=== PATIENT | male | born 1985 | race Caucasian/White ===

== ENCOUNTER 2017-09-14 01:09 | Emergency (ER) | payer OTHER, BC ==
--- NOTE | 2017-09-14 02:20 | RADIOLOGY REPORT (SQ) ---
EXAM DESCRIPTION: XR ELBOW 3 VIEWS COMPLETED DATE/TME: 09/14/2017 01:44 CLINICAL HISTORY: 32 years Male, injury COMPARISON: None. Findings: Moderate swelling-bursitis at the posterior right elbow.. Bones, joints, and soft tissues of the XR R ELBOW 3 VIEWS appear otherwise intact. IMPRESSION: Moderate swelling/bursitis at the posterior right elbow.
[2017-09-14] MEDS ORDERED: KETOROLAC TROMETHAMINE INJ/PF 30 MG/1 ML SDV IM ONE (02:25)
[2017-09-14] MEDS ORDERED: HYDROMORPHONE HCL INJ/PF 2 MG/ML AMPULE IM ONE (02:25)
--- NOTE | 2017-09-14 02:28 | ER Document Report ---
ED General - General Chief Complaint: Elbow Injury Stated Complaint: ELBOW PAIN,SWELLING Time Seen by Provider: 09/14/17 01:53 Notes: Patient is a 32-year-old male who presents with complaints of pain of the right elbow. He said the pain started around 10 PM. Is swelling and tenderness over the bursa of the right elbow. Denies any recent trauma injuries to it. He works as a rn patient services. He has never had this happen before. No recent fevers or infections. TRAVEL OUTSIDE OF THE [place] IN LAST 30 DAYS: No - Related Data Allergies/Adverse Reactions: No Known Allergies Allergy (Unverified 04/12/13 22:00) Past Medical History - Social History Smoking Status: Current Every Day Smoker Frequency of alcohol use: None Drug Abuse: None Family History: Reviewed & Not Pertinent Patient has suicidal ideation: No Patient has homicidal ideation: No Renal/ Medical History: Denies: Hx Peritoneal Dialysis - Immunizations Hx Diphtheria, Pertussis, Tetanus Vaccination: Yes Review of Systems - Review of Systems Notes: My Normal Review Basic REVIEW OF SYSTEMS: CONSTITUTIONAL : Denies fever, chills, or sweats. Denies recent illness. MUSCULOSKELETAL: Right elbow pain. SKIN: Denies rash or skin lesions. NEUROLOGICAL: Denies sensory or motor loss. ALL OTHER SYSTEMS REVIEWED AND NEGATIVE. Physical Exam - Vital signs Vitals: Temp Pulse Resp BP Pulse Ox 98.1 F 96 16 150/94 H 98 09/14/17 01:21 09/14/17 01:21 09/14/17 01:21 09/14/17 01:21 09/14/17 01:21 - Notes Notes: General Appearance: Well nourished, alert, cooperative, no acute distress, moderate to severe obvious discomfort. Vitals: reviewed, See vital signs table. Extremities: good pulses in distal right upper extremity, swelling and tenderness over the the right posterior elbow over the bursa. Mild erythema. No edema. Skin: warm, dry, appropriate color, no rash Neuro: speech clear, oriented x 3, normal affect, responds appropriately to questions. Course - Re-evaluation Re-evalutation: 09/14/17 03:04 Patient has swelling over the olecranon bursa. X-rays are also consistent with bursitis. She does have some redness over the area. I will place an antibiotic in case there is infectious component to it. I will place him on anti-inflammatory medications. He has an orthopedic doctor. I will have him follow-up with orthopedic doctor on Monday for reevaluation. I encourage him return to ER for spreading redness or swelling around his elbow, worsening pain , fevers, or feels unwell. Patient and agree with plan and patient will be discharged home. Dictation of this chart was performed using voice recognition software; therefore, there may be some unintended grammatical errors. 09/14/17 03:05 - Vital Signs Vital signs: Temp Pulse Resp BP Pulse Ox 98.1 F 96 16 150/94 H 98 09/14/17 01:21 09/14/17 01:21 09/14/17 01:21 09/14/17 01:21 09/14/17 01:21 Discharge - Discharge Clinical Impression: Bursitis of elbow Qualifiers: Elbow bursitis location: olecranon bursitis Laterality: right Qualified Code(s) : M70.21 - Olecranon bursitis, right elbow Condition: Good Disposition: HOME, SELF-CARE Instructions: Oral Narcotic Medication ([facility]) Additional Instructions: Bursitis You have been diagnosed as having bursitis. Bursitis is an inflammation of a fluid pouch (bursa) found near joints. This is usually due to repeated minor irritation, or pressure directly on the bursa. On occasion, the bursitis can be due to infection (your doctor has checked for this). The usual treatment is rest and antiinflammatory medication. Occasionally, an injection of cortisone is necessary. You should call the doctor for re-examination if the pain increases significantly, or if the area becomes severely swollen and red, or fever develops. Please follow up closely with your orthopedist for reevaluation. Please limit direct pressure to your elbow. Please take the medications as prescribed. Take the Naprosyn with food. Do not take other NSAID medicaitons such as Aspirin, Motrin, Ibuprofen, Aleve, or Advil when taking the Naprosyn. It is okay to take Tylenol. Please return to the ER if you have spreading redness or swelling around the elbow. Doxycycline will make your skin more sensitive to the sun so please make sure you keep your skin covered or wear sunscreen whenever out in the sun. Prescriptions: Doxycycline Hyclate 100 mg PO BID #14 capsule Naproxen [Naprosyn 250 mg Tablet] 250 mg PO BID #20 tablet Forms: Return to Work
[2017-09-14] MEDS ORDERED: DOXYCYCLINE HYCLATE 100 MG TABLET PO ONE ×2 (02:59→03:08)
[2017-09-14] MEDS ORDERED: HYDROCODONE/ACETAMINOPHEN 5-325 MG (6 TAB/ER DISP) PO PRN (03:05)
[2017-09-14] MEDS ORDERED: HYDROCODONE/ACETAMINOPHEN 5-325 MG (6 TAB/ER DISP) ONE (03:08)
[2017-09-14 03:16] VITALS: BP 138/84
== END 2017-09-14 03:17 | disposition home or self-care (01) ==
LOC: ER 01:09
DX: M70.21 Olecranon bursitis, right elbow (principal); L53.9 Erythematous condition, unspecified; F17.200 Nicotine dependence, unspecified, uncomplicated
CPT/HCPCS: 99283; 96372; 73080; J1885; J1170

== ENCOUNTER 2017-09-15 09:58 | Inpatient (IN) | payer BC, OTHER ==
[2017-09-15] MEDS ORDERED: RINGERS SOLUTION,LACTATED 1,000 ML IV PRN (10:12)
[2017-09-15] MEDS ORDERED: ONDANSETRON HCL INJ/PF 4 MG/2 ML SDV IV PRN ×2 (10:12→12:36)
[2017-09-15 11:11] LABS: ABSOLUTE EOSINOPHILS # (AUTO) 0.1 10^3/uL (0.0-0.6); ABSOLUTE MONOCYTES (AUTO) 1.2 10^3/uL (0.1-1.4); ABSOLUTE NEUT (AUTO) 13.4 10^3/uL (1.7-8.2); BASOPHILS % (AUTO) 0.2 % (0-2); EOSINOPHILS % (AUTO) 0.4 % (0-6); HEMATOCRIT 39.6 % (37.9-51.0); HEMOGLOBIN 13.5 g/dL (13.5-17.0); LYMPHOCYTES % (AUTO) 12.1 % (13-45); MEAN CORPUSCULAR HEMOGLOBIN 30.6 pg (27.0-33.4); MEAN CORPUSCULAR HGB CONC 34.1 g/dL (32.0-36.0); MEAN CORPUSCULAR VOLUME 90 fl (80-97); MONOCYTES % (AUTO) 7.3 % (3-13); PLATELET COUNT 218 10^3/uL (150-450); RED BLOOD COUNT 4.41 10^6/uL (4.35-5.55); RED CELL DISTRIBUTION WIDTH 13.7 % (11.5-14.0); TOTAL CELLS COUNTED % (AUTO) 100 %; WHITE BLOOD COUNT 16.8 10^3/uL (4.0-10.5)
[2017-09-15 11:32] LABS: ANION GAP 9 (5-19); BLOOD UREA NITROGEN 10 mg/dL (7-20); CALCIUM 9.3 mg/dL (8.4-10.2); CARBON DIOXIDE 27 mmol/L (22-30); CHLORIDE 105 mmol/L (98-107); GLUCOSE 99 mg/dL (75-110); POTASSIUM 4.1 mmol/L (3.6-5.0); SODIUM 141.2 mmol/L (137-145)
[2017-09-15 11:44] LABS: C-REACTIVE PROTEIN 141.6 mg/L (<10.0)
[2017-09-15 11:58] LABS: ERYTHROCYTE SEDIMENTATION RATE 34 mm/hr (0-15)
[2017-09-15] MEDS: HYDROMORPHONE HCL INJ/PF 2 MG/ML AMPULE IV PRN ×2 (13:02→21:22)
--- NOTE | 2017-09-15 13:16 | RADIOLOGY REPORT (SQ) ---
EXAM DESCRIPTION: MRI RT UPPER JOINT COMBO COMPLETED DATE/TIME: 09/15/2017 12:23 pm REASON FOR STUDY: Olecranon Bursitis right arm pain and swelling began yesterday COMPARISON: None. TECHNIQUE: Multiplanar imaging of the right elbow to include T1-weighted, postcontrast T1-weighted, and T2-weighted images. CONTRAST TYPE AND DOSE: 20 mL Prohance. RENAL FUNCTION: None required. The patient is less than 50 years old. LIMITATIONS: None. FINDINGS: BONE MARROW: No marrow signal alteration. Specifically no olecranon marrow replacement or marrow edema. No evidence for osteomyelitis. No cortical break through. SOFT TISSUES: Thick walled inflamed olecranon bursa containing fluid. This measures about 5 x 4.5 x 2 cm in size. Extensive surrounding cellulitis with skin thickening and subcutaneous edema and diffu se skin and subcutaneous soft tissue enhancement. OTHER: No right elbow joint effusion. IMPRESSION: Olecranon bursitis with surrounding cellulitis. No MR evidence of osteomyelitis. No right elbow joint effusion TECHNICAL DOCUMENTATION: JOB ID: [id number]- All Rights Reserved Reading location - IP/workstation name: [email or web address]
--- NOTE | 2017-09-15 15:11 | PDOC H&P ---
History of Present Illness Admission Date/PCP: 09/15/17 09:58 MADELINE DOLL PA-C Patient complains of: Right elbow pain History of Present Illness: GAEL KENYON III is a 32 year old male who presents to emergency room approximately 48 hours ago with swelling and pain in his elbow. He was started on antibiotics and given anti-inflammatories along with pain medication but patient continued to have worsening of his symptoms. He then developed fever and chills upon follow-up at my office he states the past evening his pain was worse. He states pain is 8/10. Worse with motion does improve with pain medication. Denies numbness or tingling. Denies specific injury. Past Medical History Psychiatric Medical History: Denies: Depression Social History Smoking Status: Unknown if Ever Smoked Frequency of Alcohol Use: Social Hx Recreational Drug Use: No Drugs: None Hx Prescription Drug Abuse: No Family History Family History: Reviewed & Not Pertinent Parental Family History Reviewed: No Children Family History Reviewed: No Sibling(s) Family History Reviewed.: No Medication/Allergy Home Medications: Azithromycin [Zithromax 250 mg Tablet] 250 mg PO DAILY #4 tablet 04/12/13 Ciprofloxacin HCl [Cipro 500 mg Tablet] 500 mg PO BID #20 tablet 06/03/14 Doxycycline Hyclate 100 mg PO BID #20 capsule 06/03/14 Hydrocodone/Acetaminophen [Baylis 5-325 mg Tablet] 1 tab PO Q4 PRN #14 tablet Doxycycline Hyclate 100 mg PO BID #14 capsule 09/14/17 Naproxen [Naprosyn 250 mg Tablet] 250 mg PO BID #20 tablet 09/14/17 Allergies/Adverse Reactions: No Known Allergies Allergy (Unverified 04/12/13 22:00) Review of Systems Constitutional: ABSENT: chills, fever(s), headache(s), weight gain, weight loss Eyes: ABSENT: visual disturbances Ears: ABSENT: hearing changes Cardiovascular: ABSENT: chest pain, dyspnea on exertion, edema, orthropnea, palpitations Respiratory: ABSENT: cough, hemoptysis Gastrointestinal: ABSENT: abdominal pain, constipation, diarrhea, hematemesis, hematochezia, nausea, vomiting Genitourinary: ABSENT: dysuria, hematuria Integumentary: ABSENT: rash, wounds Neurological: ABSENT: abnormal gait, abnormal speech, confusion, dizziness, focal weakness, syncope Psychiatric: ABSENT: anxiety, depression, homidical ideation, suicidal ideation Endocrine: ABSENT: cold intolerance, heat intolerance, menstrual abnormalities, polydipsia, polyuria Hematologic/Lymphatic: ABSENT: easy bleeding, easy bruising, lymphadenopathy Physical Exam Vital Signs: Temp Pulse Resp BP Pulse Ox 98.5 F 90 20 137/79 H 97 09/15/17 10:25 09/15/17 10:25 09/15/17 10:25 09/15/17 10:25 09/15/17 10:25 General appearance: PRESENT: no acute distress, well-developed, well-nourished Head exam: PRESENT: atraumatic, normocephalic Eye exam: PRESENT: conjunctiva pink, EOMI, PERRLA. ABSENT: scleral icterus Ear exam: PRESENT: normal external ear exam Mouth exam: PRESENT: moist, tongue midline Neck exam: PRESENT: full ROM. ABSENT: carotid bruit, JVD, lymphadenopathy, thyromegaly Respiratory exam: PRESENT: unlabored Cardiovascular exam: PRESENT: RRR. ABSENT: diastolic murmur, rubs, systolic murmur Pulses: PRESENT: normal dorsalis pedis pul, +2 pedal pulses bilateral Vascular exam: PRESENT: normal capillary refill GI/Abdominal exam: PRESENT: normal bowel sounds, soft. ABSENT: distended, guarding, mass, organolmegaly, rebound, tenderness Rectal exam: PRESENT: deferred Musculoskeletal exam: PRESENT: other - Right upper extremity: Olecranon bursitis noted with tenderness to palpation. Pain with elbow range of motion no tenderness on the joint lines. Erythema extending along the medial aspect 6 cm distal to the axilla this area demarcated. No sensory deficits. Full wrist and hand range of motion. Notable swelling along the proximal forearm compartments soft and compressible. Neurological exam: PRESENT: alert, awake, oriented to person, oriented to place , oriented to time, oriented to situation, CN II-XII grossly intact. ABSENT: motor sensory deficit Psychiatric exam: PRESENT: appropriate affect, normal mood. ABSENT: homicidal ideation, suicidal ideation Skin exam: PRESENT: dry, intact, warm. ABSENT: cyanosis, rash Results Laboratory Results: 09/15/17 10:38 09/15/17 10:38 09/15/17 09/15/17 10:38 10:38 WBC 16.8 H RBC 4.41 Hgb 13.5 Hct 39.6 MCV 90 MCH 30.6 MCHC 34.1 RDW 13.7 Plt Count 218 Seg Neutrophils % 80.0 H Lymphocytes % 12.1 L Monocytes % 7.3 Eosinophils % 0.4 Basophils % 0.2 Absolute Neutrophils 13.4 H Absolute Lymphocytes 2.0 Absolute Monocytes 1.2 Absolute Eosinophils 0.1 Absolute Basophils 0.0 Sodium 141.2 Potassium 4.1 Chloride 105 Carbon Dioxide 27 Anion Gap 9 BUN 10 Creatinine 0.76 Est GFR ( Amer) > 60 Est GFR (Non-Af Amer) > 60 Glucose 99 Calcium 9.3 C-Reactive Protein 141.6 H Impressions: Upper Extremity MRI 09/15/17 00:00 IMPRESSION: Olecranon bursitis with surrounding cellulitis. No MR evidence of osteomyelitis. No right elbow joint effusion Assessment & Plan - Diagnosis (1) Septic olecranon bursitis of right elbow Is this a current diagnosis for this admission?: Yes Plan: The patient's MRI demonstrates evidence of olecranon bursitis given the fact he has failed conservative treatment with p.o. antibiotics we will start him on IV vancomycin and Rocephin. Furthermore given his elevated inflammatory markers and severity of the swelling I have recommended proceeding with operative intervention which includes right elbow irrigation debridement with olecranon bursectomy. Risks and benefits of the surgical procedure have been explained risks including neurovascular risk, recurrent infection, postoperative pain, stiffness need for future surgical intervention patient has verbalized understanding consented for the procedure.
[2017-09-15] MEDS: HEPARIN SOD (PORCINE) 5,000 UNIT/ML 1 ML SYRINGE SUBCUT SCH (16:06)
[2017-09-15] MEDS: CEFTRIAXONE SODIUM 1,000 MG in DEXTROSE 5%-WATER 50 ML IV SCH (17:06)
[2017-09-15] MEDS: OXYCODONE-ACETAMINOPHEN 5-325 MG TABLET PO PRN (17:06)
[2017-09-15] MEDS ORDERED: VANCOMYCIN HCL INJ 1000 MG VIAL IV SCH (18:00)
[2017-09-15] MEDS ORDERED: DEXTROSE 40% GEL 15 GM TUBE PO PRN ×2 (18:45)
[2017-09-15] MEDS ORDERED: GLUCAGON,HUMAN RECOMB 1 MG INJ SUBCUT PRN (18:45)
[2017-09-15] MEDS ORDERED: DEXTROSE 50%-WATER 25 GM/50 ML DISP.SYRIN IV PRN ×2 (18:45)
[2017-09-15] MEDS: VANCOMYCIN HCL 1,750 MG in DEXTROSE 5%-WATER 500 ML IV SCH (21:23)
[2017-09-16] MEDS: HEPARIN SOD (PORCINE) 5,000 UNIT/ML 1 ML SYRINGE SUBCUT SCH ×3 (00:41→15:49)
[2017-09-16] MEDS: HYDROMORPHONE HCL INJ/PF 2 MG/ML AMPULE IV PRN ×5 (00:46→21:21)
[2017-09-16] MEDS: VANCOMYCIN HCL 1,750 MG in DEXTROSE 5%-WATER 500 ML IV SCH ×4 (03:22→21:20)
[2017-09-16 07:12] LABS: ABSOLUTE BASOPHILS # (AUTO) 0.1 10^3/uL (0.0-0.2); ABSOLUTE EOSINOPHILS # (AUTO) 0.1 10^3/uL (0.0-0.6); ABSOLUTE MONOCYTES (AUTO) 1.6 10^3/uL (0.1-1.4); ABSOLUTE NEUT (AUTO) 13.9 10^3/uL (1.7-8.2); BASOPHILS % (AUTO) 0.4 % (0-2); EOSINOPHILS % (AUTO) 0.7 % (0-6); HEMATOCRIT 38.1 % (37.9-51.0); HEMOGLOBIN 13.1 g/dL (13.5-17.0); LYMPHOCYTES % (AUTO) 11.4 % (13-45); MEAN CORPUSCULAR HEMOGLOBIN 30.8 pg (27.0-33.4); MEAN CORPUSCULAR HGB CONC 34.3 g/dL (32.0-36.0); MEAN CORPUSCULAR VOLUME 90 fl (80-97); MONOCYTES % (AUTO) 9.1 % (3-13); PLATELET COUNT 201 10^3/uL (150-450); RED BLOOD COUNT 4.25 10^6/uL (4.35-5.55); RED CELL DISTRIBUTION WIDTH 13.4 % (11.5-14.0); SEGMENTED NEUTROPHILS % (AUTO) 78.4 % (42-78); TOTAL CELLS COUNTED % (AUTO) 100 %; WHITE BLOOD COUNT 17.7 10^3/uL (4.0-10.5)
[2017-09-16] MEDS ORDERED: CEFTRIAXONE INJ 1000 MG VIAL IV SCH (10:00)
[2017-09-16] MEDS ORDERED: DEXAMETHASONE SOD PHOSPHATE INJ 4 MG/1 ML VIAL ONE (10:06)
[2017-09-16] MEDS ORDERED: ONDANSETRON HCL INJ/PF 4 MG/2 ML SDV ONE (10:06)
[2017-09-16] MEDS ORDERED: MIDAZOLAM 2 MG/2 ML INJ ONE (10:06)
[2017-09-16] MEDS ORDERED: FENTANYL CITRATE INJ/PF 100 MCG/2 ML AMPUL ONE ×3 (10:06→11:40)
[2017-09-16] MEDS ORDERED: PROPOFOL INJ 200 MG/20 ML VIAL IV ONE (10:07)
[2017-09-16] MEDS ORDERED: ACETAMINOPHEN 0 MG/0 ML RTUPB IV ONE (10:07)
[2017-09-16] MEDS ORDERED: MORPHINE SULFATE 10 MG/ML INJ ONE (10:07)
--- NOTE | 2017-09-16 11:11 | Operative Report ---
Operative Report DATE OF SURGERY: 09/16/17 PREOPERATIVE DIAGNOSIS: Right elbow septic olecranon bursitis POSTOPERATIVE DIAGNOSIS: Same OPERATION: Irrigation debridement right olecranon bursa with olecranon bursectomy SURGEON: REDDY LUQUE ANESTHESIA: GA TISSUE REMOVED OR ALTERED: Olecranon bursa sent for aerobic, anaerobic AFB and fungal COMPLICATIONS: None ESTIMATED BLOOD LOSS: Minimal PROCEDURE: Indication for above procedure: 32-year-old male who presented to the emergency room on 09/13/17 with redness and swelling of his right elbow. Patient was started on antibiotics but failed to see significant improvement he was then seen in my office at which point redness and swelling had worsened and concerns for olecranon bursitis were discussed. Patient ultimately was admitted to orthopedic service started on IV antibiotics and MRI ordered demonstrating fluid collection within the olecranon bursa. Patient failed to see improvement after 24 hours of IV antibiotics at that point decision was made to proceed with operative intervention. Procedure In Detail: Patient was seen and evaluated in the preoperative holding area. The RIGHT upper extremity was initialized and marked. Patient received 2g of Ancef IV for bacterial prophylaxis. Patient was taken back to the operative room where transferred to the operative table and placed under general anesthesia. Once they were adequately anesthetized a nonsterile tourniquet was placed on the upper extremity. A surgical team debriefing was performed ensuring all instrumentation was available, the surgical procedure was discussed with possible concerns reviewed. The upper extremity was prepped with chlorhexidine and alcohol and draped in a sterile fashion. A timeout was done identifying correct patient, procedure and extremity everyone in attendance agree with this and verbalized no concerns. The extremity was elevated the tourniquet was inflated to 250 mmHg. Longitudinal skin incision was made along the olecranon bursa. Copious amounts of purulence was expressed and cultures sent. The olecranon bursa was then isolated excising it bluntly along its medial and lateral planes carefully protecting the underlying ulnar nerve medially. The bursal tissue was then sent for AFB and fungal. There was no evidence of streaking erythema proximal or distal to the olecranon bursa. Once the entirety of the olecranon bursa was excised the wound was copiously irrigated with 1 L of normal saline. A Radha drain was then placed laterally. Skin incision was closed with interrupted 3-0 nylon suture. Wound was dressed with Xeroform 4 x 4's ABD and a soft dressing. Tourniquet was deflated. Patient's erythema was marked with the operative pending to evaluate progression. Sponge counts, instrument counts, needle counts counts were correct. Patient was then awoken from anesthesia. Transferred from the operating room table to the operating room stretcher. There was no intraoperative complications patient tolerated procedure well stable to PACU. Postoperative plan: Patient will continue IV antibiotics once he demonstrates clinical improvement and/or cultures are finalized will be stable for discharge to home.
[2017-09-16] MEDS ORDERED: HYDROMORPHONE HCL INJ/PF 2 MG/ML AMPULE INJ ONE (11:26)
[2017-09-16] MEDS ORDERED: HYDROMORPHONE HCL INJ/PF 2 MG/ML AMPULE ONE (11:26)
[2017-09-16] MEDS: FENTANYL CITRATE INJ/PF 100 MCG/2 ML AMPUL IV PRN ×2 (11:30→11:40)
[2017-09-16] MEDS ORDERED: FENTANYL CITRATE INJ/PF 100 MCG/2 ML AMPUL INJ ONE (11:45)
[2017-09-16] MEDS ORDERED: FENTANYL CITRATE INJ/PF 100 MCG/2 ML AMPUL IV PRN ×2 (11:46)
[2017-09-16] MEDS ORDERED: PROMETHAZINE HCL INJ 25 MG/1 ML VIAL IV PRN ×2 (11:46)
[2017-09-16] MEDS ORDERED: MORPHINE SULFATE 10 MG/ML INJ IV PRN (11:46)
[2017-09-16] MEDS ORDERED: DIPHENHYDRAMINE HCL 50 MG/ML VIAL IV PRN (11:46)
[2017-09-16] MEDS ORDERED: MEPERIDINE HCL/PF INJ 25 MG/1 ML DISP.SYRIN IV PRN (11:46)
[2017-09-16] MEDS: CEFTRIAXONE SODIUM 1,000 MG in DEXTROSE 5%-WATER 50 ML IV SCH (17:26)
[2017-09-16] MEDS: OXYCODONE-ACETAMINOPHEN 5-325 MG TABLET PO PRN (19:42)
[2017-09-17] MEDS: HEPARIN SOD (PORCINE) 5,000 UNIT/ML 1 ML SYRINGE SUBCUT SCH ×4 (02:56→22:47)
[2017-09-17] MEDS: VANCOMYCIN HCL 1,750 MG in DEXTROSE 5%-WATER 500 ML IV SCH ×3 (04:58→20:34)
[2017-09-17] MEDS: OXYCODONE-ACETAMINOPHEN 5-325 MG TABLET PO PRN ×4 (05:22→23:58)
[2017-09-17] MEDS: HYDROMORPHONE HCL INJ/PF 2 MG/ML AMPULE IV PRN ×3 (07:41→20:56)
[2017-09-17 10:35] LABS: HEMATOCRIT 36.1 % (37.9-51.0); HEMOGLOBIN 12.6 g/dL (13.5-17.0); MEAN CORPUSCULAR HEMOGLOBIN 31.4 pg (27.0-33.4); MEAN CORPUSCULAR HGB CONC 34.8 g/dL (32.0-36.0); MEAN CORPUSCULAR VOLUME 90 fl (80-97); RED CELL DISTRIBUTION WIDTH 13.3 % (11.5-14.0); WHITE BLOOD COUNT 15.1 10^3/uL (4.0-10.5)
[2017-09-17 10:36] LABS: ABSOLUTE BASOPHILS # (AUTO) 0.1 10^3/uL (0.0-0.2); ABSOLUTE EOSINOPHILS # (AUTO) 0.1 10^3/uL (0.0-0.6); ABSOLUTE LYMPHOCYTES (AUTO) 2.1 10^3/uL (0.5-4.7); ABSOLUTE MONOCYTES (AUTO) 1.2 10^3/uL (0.1-1.4); ABSOLUTE NEUT (AUTO) 11.6 10^3/uL (1.7-8.2); BASOPHILS % (AUTO) 0.9 % (0-2); EOSINOPHILS % (AUTO) 0.7 % (0-6); MONOCYTES % (AUTO) 7.7 % (3-13); PLATELET COUNT 226 10^3/uL (150-450); SEGMENTED NEUTROPHILS % (AUTO) 76.7 % (42-78); TOTAL CELLS COUNTED % (AUTO) 100 %
[2017-09-17] MEDS ORDERED: POLYETHYLENE GLYCOL 3350 POWDER 17 GM/1 PACKET PO SCH (11:00)
--- NOTE | 2017-09-17 13:44 | PDOC PROGRESS REPORT ---
Subjective Progress Note for:: 09/17/17 Subjective:: Patient states pain swelling and function of notably improved. Denies fever chills or sweats overnight. Reason For Visit: RIGHT SEPTIC OLECRANON BURSITIS Physical Exam Vital Signs: Temp Pulse Resp BP Pulse Ox 98.0 F 97 18 155/80 H 98 09/17/17 11:19 09/17/17 11:19 09/17/17 11:19 09/17/17 11:19 09/17/17 11:19 Intake & Output 09/16/17 09/17/17 09/18/17 06:59 06:59 06:59 Intake Total 2009 1775 Output Total 225 Balance 2009 1550 Weight 113.398 kg Musculoskeletal exam: PRESENT: other - Right elbow: Dressing change today. Erythema and swelling have significantly improved. No evidence of palpable fluctuance or reaccumulation fluid along the olecranon bursa. Drain inadvertently removed today. Patient has full elbow extension with flexion of 140 without discomfort. No sensory deficits. Results Laboratory Results: 09/17/17 10:19 09/16/17 14:48 09/16/17 09/17/17 14:48 10:19 WBC 15.1 H RBC 4.00 L Hgb 12.6 L Hct 36.1 L MCV 90 MCH 31.4 MCHC 34.8 RDW 13.3 Plt Count 226 Seg Neutrophils % 76.7 Lymphocytes % 14.0 Monocytes % 7.7 Eosinophils % 0.7 Basophils % 0.9 Absolute Neutrophils 11.6 H Absolute Lymphocytes 2.1 Absolute Monocytes 1.2 Absolute Eosinophils 0.1 Absolute Basophils 0.1 Creatinine 0.96 Est GFR ( Amer) > 60 Est GFR (Non-Af Amer) > 60 09/16/17 10:40 Elbow - Right Gram Stain - Final Impressions: Upper Extremity MRI 09/15/17 00:00 IMPRESSION: Olecranon bursitis with surrounding cellulitis. No MR evidence of osteomyelitis. No right elbow joint effusion Assessment & Plan - Diagnosis (1) Septic olecranon bursitis of right elbow Is this a current diagnosis for this admission?: Yes Plan: Right elbow Postop day #1 status post irrigation debridement with olecranon bursectomy 1. Pain control with Percocet 2. Continue vancomycin and Rocephin 3. Anticipate discharge home on 09/18/17 on p.o. antibiotics
[2017-09-17] MEDS: CEFTRIAXONE SODIUM 1,000 MG in DEXTROSE 5%-WATER 50 ML IV SCH (17:26)
[2017-09-17 20:04] LABS: VANCOMYCIN,TROUGH 13.4 ug/mL (5.0-20.0)
[2017-09-18] MEDS: VANCOMYCIN HCL 1,750 MG in DEXTROSE 5%-WATER 500 ML IV SCH (04:18)
[2017-09-18] MEDS: HYDROMORPHONE HCL INJ/PF 2 MG/ML AMPULE IV PRN (06:12)
[2017-09-18 06:31] LABS: ABSOLUTE BASOPHILS # (AUTO) 0.1 10^3/uL (0.0-0.2); ABSOLUTE EOSINOPHILS # (AUTO) 0.3 10^3/uL (0.0-0.6); ABSOLUTE LYMPHOCYTES (AUTO) 3.3 10^3/uL (0.5-4.7); ABSOLUTE MONOCYTES (AUTO) 0.8 10^3/uL (0.1-1.4); ABSOLUTE NEUT (AUTO) 5.1 10^3/uL (1.7-8.2); BASOPHILS % (AUTO) 0.9 % (0-2); EOSINOPHILS % (AUTO) 3.5 % (0-6); HEMATOCRIT 36.1 % (37.9-51.0); HEMOGLOBIN 12.4 g/dL (13.5-17.0); LYMPHOCYTES % (AUTO) 34.5 % (13-45); MEAN CORPUSCULAR HEMOGLOBIN 31.2 pg (27.0-33.4); MEAN CORPUSCULAR HGB CONC 34.4 g/dL (32.0-36.0); MEAN CORPUSCULAR VOLUME 91 fl (80-97); PLATELET COUNT 255 10^3/uL (150-450); RED BLOOD COUNT 3.98 10^6/uL (4.35-5.55); RED CELL DISTRIBUTION WIDTH 13.4 % (11.5-14.0); SEGMENTED NEUTROPHILS % (AUTO) 53.1 % (42-78); TOTAL CELLS COUNTED % (AUTO) 100 %; WHITE BLOOD COUNT 9.6 10^3/uL (4.0-10.5)
[2017-09-18] MEDS: HEPARIN SOD (PORCINE) 5,000 UNIT/ML 1 ML SYRINGE SUBCUT SCH (07:54)
[2017-09-18] MEDS: OXYCODONE-ACETAMINOPHEN 5-325 MG TABLET PO PRN (07:55)
[2017-09-18 08:41] VITALS: BP 120/57
[2017-09-18] MEDS ORDERED: VANCOMYCIN HCL 1,500 MG in DEXTROSE 5%-WATER 250 ML IV SCH (09:00)
--- NOTE | 2017-09-18 12:16 | PDOC PROGRESS REPORT ---
Subjective Progress Note for:: 09/18/17 Subjective:: Patient states pain swelling and function of notably improved. Denies fever chills or sweats overnight. Reason For Visit: RIGHT SEPTIC OLECRANON BURSITIS Physical Exam Vital Signs: Temp Pulse Resp BP Pulse Ox 98.6 F 73 16 120/57 L 96 09/18/17 08:31 09/18/17 08:31 09/18/17 08:31 09/18/17 08:31 09/18/17 08:31 Intake & Output 09/17/17 09/18/17 09/19/17 06:59 06:59 06:59 Intake Total 1775 2049 Output Total 225 Balance 1550 2049 Musculoskeletal exam: PRESENT: other - Right Elbow: incision c/d/i. Minimal erythema. Swelling significantly improved. Full ROM w/o pain Results Laboratory Results: 09/18/17 06:12 09/17/17 19:35 09/17/17 09/18/17 19:35 06:12 WBC 9.6 RBC 3.98 L Hgb 12.4 L Hct 36.1 L MCV 91 MCH 31.2 MCHC 34.4 RDW 13.4 Plt Count 255 Seg Neutrophils % 53.1 Lymphocytes % 34.5 Monocytes % 8.0 Eosinophils % 3.5 Basophils % 0.9 Absolute Neutrophils 5.1 Absolute Lymphocytes 3.3 Absolute Monocytes 0.8 Absolute Eosinophils 0.3 Absolute Basophils 0.1 Creatinine 1.02 Est GFR ( Amer) > 60 Est GFR (Non-Af Amer) > 60 Impressions: Upper Extremity MRI 09/15/17 00:00 IMPRESSION: Olecranon bursitis with surrounding cellulitis. No MR evidence of osteomyelitis. No right elbow joint effusion Assessment & Plan - Diagnosis (1) Septic olecranon bursitis of right elbow Is this a current diagnosis for this admission?: Yes Plan: Right elbow Postop day #1 status post irrigation debridement with olecranon bursectomy Patient will be switched to PO doxycycline. Continue daily dressing change. FU 7 days for recheck
--- NOTE | 2017-09-19 07:59 | PDOC DISCHARGE SUMMARY ---
General - Admit/Disc Date/PCP Admission Date/Primary Care Provider: 09/15/17 09:58 MADELINE DOLL PA-C Discharge Date: 09/18/17 - Discharge Diagnosis (1) Septic olecranon bursitis of right elbow Is this a current diagnosis for this admission?: Yes - Additional Information Resuscitation Status: Full Code Discharge Diet: As Tolerated Discharge Activity: Energy Conservation, No Lifting Over 10 Pounds, No Lifting/ Push/Pulling Prescriptions: Oxycodone HCl/Acetaminophen [Percocet 5-325 mg Tablet] 1 - 2 tab PO ASDIR PRN # 25 tablet PRN Reason: Home Medications: Oxycodone HCl/Acetaminophen [Percocet 5-325 mg Tablet] 1 - 2 tab PO ASDIR PRN # 25 tablet 09/18/17 History of Present Illness History of Present Illness: GAEL KENYON III is a 32 year old male who presents to emergency room approximately 48 hours ago with swelling and pain in his elbow. He was started on antibiotics and given anti-inflammatories along with pain medication but patient continued to have worsening of his symptoms. He then developed fever and chills upon follow-up at my office he states the past evening his pain was worse. He states pain is 8/10. Worse with motion does improve with pain medication. Denies numbness or tingling. Denies specific injury. Hospital Course Hospital Course: Patient had MRI demonstrating fluid within the olecranon bursa with failure to improve with conservative management. At that point decision was made to proceed with operative intervention which includes irrigation debridement olecranon bursectomy right elbow. Patient underwent surgical procedure on successfully. Postoperatively cultures were obtained demonstrating methicillin sensitive staph aureus. Clinically patient improved with extra vancomycin and Rocephin. Given his clinical improvement patient was stable for discharge to home on 09/18/17. Physical Exam Vital Signs: Temp Pulse Resp BP Pulse Ox 98.6 F 73 16 120/57 L 96 09/18/17 08:31 09/18/17 08:31 09/18/17 08:31 09/18/17 08:31 09/18/17 08:31 Intake & Output 09/18/17 09/19/17 09/20/17 06:59 06:59 06:59 Intake Total 2049 Balance 2049 Results Laboratory Results: 09/18/17 06:12 09/17/17 19:35 Impressions: Upper Extremity MRI 09/15/17 00:00 IMPRESSION: Olecranon bursitis with surrounding cellulitis. No MR evidence of osteomyelitis. No right elbow joint effusion Qualifiers - * PATIENT BEING DISCHARGED WITH ANY OF THE FOLLOWING DIAGNOSIS: No Plan Discharge Plan: On 09/18/17 patient orthopedically medically stable for discharge to home. Patient was to continue daily dressing changes. With the call with any questions or concerns including increasing redness, swelling, pain or temperature greater than 101.5. Patient discharged to home on pain medication and to continue doxycycline previously prescribed. Patient was read above instructions understood above instructions and was in a still works herestable for discharge to home.
== END 2017-09-18 09:03 | disposition home or self-care (01) | DRG 501 ==
LOC: 2N 09:58
PROVIDERS: ADMIT Orthopaedic Surgery; ATTEND Orthopaedic Surgery
PROC: 0M9 Bursae and Ligaments, Drainage (ICD-10-PCS; 2017-09-16)
PROC: 0MB30ZZ Excision of Right Elbow Bursa and Ligament, Open Approach (ICD-10-PCS; principal; 2017-09-16 10:00)
DX: M70.21 Olecranon bursitis, right elbow (principal); L03.113 Cellulitis of right upper limb; M25.521 Pain in right elbow
CPT/HCPCS: 01710; 36415; 80048; 80202; 82565; 85025; 85652; 86140; 87015; 87040; 87070; 87075; 87077; 87101; 87116; 87186; 87205; 87206; A9576; J0131; J0696; J1100; J1170; J1644; J2250; J2270; J2405; J2704; J3010; J3370; J3490; J7060

== ENCOUNTER 2018-03-01 07:59 | Emergency (ER) | payer BC ==
[2018-03-01] MEDS ORDERED: ACETAMINOPHEN 325 MG TABLET PO ONE (08:31)
[2018-03-01] MEDS ORDERED: KETOROLAC TROMETHAMINE 60 MG/2 ML SDV IM ONE (08:42)
--- NOTE | 2018-03-01 08:57 | ER Document Report ---
ED General - General Chief Complaint: Shortness Of Breath Stated Complaint: FEVER Time Seen by Provider: 03/01/18 08:41 TRAVEL OUTSIDE OF THE [place] IN LAST 30 DAYS: No - HPI Notes: Patient is a 33-year-old male that presents to the emergency department for chief complaint of fever and cough. Patient reports Monday night he started having cough and fevers. He was seen in urgent care yesterday on . He states they did not do a chest x-ray but he had a negative influenza test. Patient does live with someone who tested positive for the flu this week. He did not receive an influenza vaccine. He has not taken any Tylenol or ibuprofen yet today. Patient denies any nausea vomiting abdominal pain, and dyspnea. He does state that he has some pain across his chest with coughing and a frequent nonproductive cough. Patient also reports history of pneumonia Past Medical History: Negative Past Surgical History: Negative Social History: Former smoker. Occasional alcohol. Denies drug use Family History: Reviewed and noncontributory for presenting illness Allergies: Reviewed, see documented allergy list. REVIEW OF SYSTEMS: CONSTITUTIONAL : fever chills No diaphoresis No recent illness EENT: No vision changes congestion No sore throat CARDIOVASCULAR: No chest pain No palpitations RESPIRATORY: no shortness of breath cough No difficulty breathing GASTROINTESTINAL: No abdominal pain No nausea No vomiting No diarrhea GENITOURINARY: No dysuria No hematuria No difficulty urinating MUSCULOSKELETAL: No back pain No leg pain No arm pain SKIN: No rashes No lesions LYMPHATIC: No swollen, enlarged glands. NEUROLOGICAL: No lightheadedness No headache No weakness No paresthesias PSYCHIATRIC: No anxiety No depression PHYSICAL EXAMINATION: Vital signs reviewed, nursing noted reviewed. GENERAL: ill-appearing, well-nourished and in no acute distress. HEAD: Atraumatic, normocephalic. EYES: Eyes appear normal, extraocular movements intact, sclera anicteric, conjunctiva are normal. ENT: nares patent, oropharynx clear without exudates. Moist mucous membranes. NECK: Normal range of motion, supple without lymphadenopathy LUNGS: Breath sounds clear to auscultation bilaterally and equal. No wheezes rales or rhonchi. HEART: Tachycardic rate and regular rhythm without murmurs ABDOMEN: Soft, nontender, normoactive bowel sounds. No rebound, guarding, or rigidity. No masses appreciated. EXTREMITIES: Nontender, good range of motion, no pitting or edema. NEUROLOGICAL: No focal neurological deficits. Moves all extremities spontaneously Motor and sensory grossly intact on exam. PSYCH: Normal mood, normal affect. SKIN: Warm, Dry, normal turgor, no rashes or lesions noted on exposed skin - Related Data Allergies/Adverse Reactions: No Known Allergies Allergy (Verified 03/01/18 08:00) Past Medical History - Social History Smoking Status: Never Smoker Family History: Reviewed & Not Pertinent Renal/ Medical History: Denies: Hx Peritoneal Dialysis Psychiatric Medical History: Denies: Hx Depression - Immunizations Hx Diphtheria, Pertussis, Tetanus Vaccination: Yes Physical Exam - Vital signs Vitals: Temp Pulse Resp BP Pulse Ox 101.6 F H 113 H 16 147/80 H 98 03/01/18 08:03 03/01/18 08:03 03/01/18 08:03 03/01/18 08:03 03/01/18 08:03 Course - Re-evaluation Re-evalutation: 03/01/18 08:57 Vitals reviewed. Nursing notes reviewed. Patient is febrile and mildly tachycardic. He has moist mucous membranes and does appear hydrated. He was given Tylenol and Toradol for his fever. He is breathing well on room air and in no respiratory distress. 03/01/18 10:31 Patient reevaluated. He is symptomatically improving. His heart rate is now no longer tachycardic. Patient's influenza is negative. Chest x-ray shows no acute pneumonia. Patient has an exposure to someone who tested positive for the flu and I still clinically suspicious that he has influenza. Without a positive culture and symptoms ongoing for 2-3 days Tamiflu is not currently indicated. I did psychologist counseling him on increasing hydration as well as taking Tylenol and ibuprofen for symptomatic management. He will return to the emergency room for new or worsening symptoms. He is stable and improved at discharge. Laboratory 03/01/18 08:49 Influenza A (Rapid) NEGATIVE Influenza B (Rapid) NEGATIVE Chest X-Ray 03/01/18 08:41 IMPRESSION: NO ACUTE RADIOGRAPHIC FINDING IN THE CHEST. - Vital Signs Vital signs: Temp Pulse Resp BP Pulse Ox 99.5 F 113 H 16 147/80 H 96 03/01/18 09:30 03/01/18 08:03 03/01/18 08:03 03/01/18 08:03 03/01/18 10:00 Discharge - Discharge Clinical Impression: Influenza Condition: Stable Disposition: HOME, SELF-CARE Instructions: Influenza ([facility]) [id number] Additional Instructions: Please return to the emergency department if you have any worsening, or concern of your symptoms. Please return to the emergency department if you develop chest pain, difficulty breathing, severe abdominal pain, or ongoing vomiting. Please follow-up with your primary care physician in 2-3 days and any other recommended physicians. If prescribed, take all medications as directed. If you have any questions or concerns do not hesitate to return the emergency department for evaluation. [] Forms: Return to Work Referrals: MADELINE DOLL PA-C [Primary Care Provider] - Follow up in 3-5 days
--- NOTE | 2018-03-01 09:20 | RADIOLOGY REPORT (SQ) ---
EXAM DESCRIPTION: CHEST 2 VIEWS COMPLETED DATE/TIME: 03/01/2018 9:08 am REASON FOR STUDY: cough COMPARISON: 04/12/2013. EXAM PARAMETERS: NUMBER OF VIEWS: two views TECHNIQUE: Digital Frontal and Lateral radiographic views of the chest acquired. RADIATION DOSE: NA LIMITATIONS: none FINDINGS: LUNGS AND PLEURA: No acute infiltrates or effusions. MEDIASTINUM AND HILAR STRUCTURES: No masses or contour abnormalities. HEART AND VASCULAR STRUCTURES: The heart is normal. Pulmonary vasculature is normal. BONES: No acute findings. HARDWARE: None in the chest. OTHER: No other significant finding. IMPRESSION: NO ACUTE RADIOGRAPHIC FINDING IN THE CHEST. TECHNICAL DOCUMENTATION: JOB ID: [id number] [employer]- All Rights Reserved Reading location - IP/workstation name: [email or web address]
[2018-03-01 09:34] LABS: A TYPE INFLUENZA AG NEGATIVE (NEGATIVE); B INFLUENZA AG NEGATIVE (NEGATIVE)
[2018-03-01 10:49] VITALS: BP 118/76
== END 2018-03-01 10:49 | disposition home or self-care (01) ==
LOC: ER 07:59
DX: J11.1 Influenza due to unidentified influenza virus with other respiratory manifestations (principal); R06.02 Shortness of breath; R50.9 Fever, unspecified
CPT/HCPCS: 99283; 96372; 87804; 71046; J1885

== ENCOUNTER 2018-04-11 20:11 | Emergency (ER) | payer OTHER, BC ==
--- NOTE | 2018-04-11 20:34 | ER Document Report ---
ED Neck/Back Problem - General Chief Complaint: Back Pain Stated Complaint: BACK PAIN Time Seen by Provider: 04/11/18 20:33 Primary Care Provider: MADELINE DOLL PA-C [Primary Care Provider] - Follow up as needed Mode of Arrival: Ambulatory Information source: Patient Notes: HISTORY OF PRESENT ILLNESS: Patient is a 33-year-old male with a past medical history of chronic back pain secondary to disc herniation who presents with acute on chronic back pain without known injury. Location: Low back Onset: Prior to arrival Provocation: Twisting, bending Quality: Tightness Radiation: Left leg Severity: Severe Timing: Constant Associated symptoms: No fevers or chills, no ataxia, no urinary retention, no fecal incontinence, no known injury REVIEW OF SYSTEMS: CONSTITUTIONAL : Denies fever or chills, no sweats. Denies recent illness. EENT: Denies eye, ear, throat, or mouth pain or symptoms. Denies nasal or sinus congestion. CARDIOVASCULAR: Denies chest pain. RESPIRATORY: Denies cough, cold, or chest congestion. Denies shortness of breath, difficulty breathing, or wheezing. GASTROINTESTINAL: Denies abdominal pain. Denies nausea, vomiting, or diarrhea. Denies constipation or fecal incontinence. GENITOURINARY: Denies difficulty urinating, painful urination, burning, frequency, or blood in urine. MUSCULOSKELETAL: Positive for back pain. SKIN: Denies rash or skin lesions. HEMATOLOGIC : Denies easy bruising or bleeding. LYMPHATIC: Denies swollen, enlarged glands. NEUROLOGICAL: Denies altered mental status or loss of consciousness. Denies h eadache. Denies weakness or paralysis or loss of use of either side. Denies problems with gait or speech. Denies sensory or motor loss. PSYCHIATRIC: Denies anxiety or stress or depression. All other systems reviewed and negative. PHYSICAL EXAMINATION: GENERAL: Well-appearing, well-nourished and in no acute distress. HEAD: Atraumatic, normocephalic. No scalp deformity, depression, or crepitance. EYES: Pupils are 3 mm and equal/round/reactive to light, extraocular movements intact, sclera anicteric, conjunctiva are normal. ENT: Nares patent bilaterally, oropharynx clear without exudates or palatal petechia. Moist mucous membranes. No tonsil hypertrophy. NECK: Normal range of motion, supple without lymphadenopathy. LUNGS: Breath sounds present, equal, and clear to auscultation bilaterally. No wheezes, rales, or rhonchi. HEART: Regular rate and rhythm without murmurs, rubs, or gallops. 2+ peripheral pulses. Normal capillary refill. ABDOMEN: Soft, nontender, nondistended. Normoactive bowel sounds. No guarding, no rebound. No masses appreciated. BACK: Normal contour, moderate diffuse midline tenderness. Rectal exam deferred. GENITAL: Deferred. EXTREMITIES: Painful but normal range of motion with a positive straight leg raise on the left, no pitting or edema. No cyanosis. NEUROLOGICAL: No focal neurological deficits. Moves all extremities spontaneously and on command. 2+ deep tendon reflexes globally. PSYCH: Normal mood, normal affect. No suicidal thoughts/ideations. No homocidal thoughts/ideations. No hallucinations. SKIN: Warm, dry, normal turgor, no rashes or lesions noted. ASSESSMENT AND PLAN: This patient is a 33-year-old male who presents with acute on chronic back pain that looks like sciatica, likely an exacerbation from his underlying herniated d isc. 1. Will give Toradol with oral baclofen and will reassess. 2. Will have the patient follow-up with his primary physician and his specialist. TRAVEL OUTSIDE OF THE [place] IN LAST 30 DAYS: No - Related Data Allergies/Adverse Reactions: No Known Allergies Allergy (Verified 04/11/18 20:22) Past Medical History - General Information source: Patient - Social History Smoking Status: Never Smoker Chew tobacco use (# tins/day): No Frequency of alcohol use: Occasional Drug Abuse: None Lives with: Family Family History: Reviewed & Not Pertinent Patient has suicidal ideation: No Patient has homicidal ideation: No - Past Medical History Cardiac Medical History: Reports: Hx Hypercholesterolemia Pulmonary Medical History: Reports: Hx Pneumonia EENT Medical History: Reports: None Neurological Medical History: Reports: None Endocrine Medical History: Reports: None Renal/ Medical History: Reports: None. Denies: Hx Peritoneal Dialysis Malignancy Medical History: Reports None GI Medical History: Reports: None Musculoskeletal Medical History: Reports None Skin Medical History: Reports None Psychiatric Medical History: Reports: None Denies: Hx Depression Traumatic Medical History: Reports: None Infectious Medical History: Reports: None Surgical Hx: Negative Past Surgical History: Reports: None, Hx Orthopedic Surgery - elbow - Immunizations Immunizations up to date: Yes Hx Diphtheria, Pertussis, Tetanus Vaccination: Yes History of Influenza Vaccine for 11/2016 - 04/2017 Season: Unknown Physical Exam - Vital signs Vitals: Temp Pulse Resp BP Pulse Ox 98.1 F 106 H 20 146/101 H 100 04/11/18 20:20 04/11/18 20:20 04/11/18 20:20 04/11/18 20:20 04/11/18 20:20 Course - Re-evaluation Re-evalutation: 04/11/18 23:48 Patient reports moderate improvement after IV Toradol and oral baclofen. He will be discharged home with return precautions and follow-up with his regular physician as scheduled. Patient voices both understanding and agreement the plan. - Vital Signs Vital signs: Temp Pulse Resp BP Pulse Ox 98.3 F 101 H 16 142/89 H 98 04/11/18 23:56 04/11/18 23:56 04/11/18 23:56 04/11/18 23:56 04/11/18 23:56 Discharge - Discharge Clinical Impression: Chronic back pain Qualifiers: Back pain location: low back pain Back pain laterality: midline Sciatica presence: with sciatica Sciatica laterality: sciatica of left side Qualified Code(s): M54.42 - Lumbago with sciatica, left side Condition: Good Disposition: HOME, SELF-CARE Instructions: Sciatica (OM) Additional Instructions: You have been evaluated in the Emergency Department for worsening back pain with nerve impingement down her left leg. While here, you had medications with impro vement and it is now safe to be discharged home. Please follow-up with your primary physician as instructed in 1 week to be rechecked. Return to the Emergency Department if you experience worsening pain, the inability to urinate, have fecal incontinence, weakness of the lower extremities, or any other concerning symptoms. Prescriptions: Baclofen [Baclofen 10 mg Tablet] 10 mg PO Q8HP PRN #90 tab PRN Reason: For Back Pain Gabapentin [Neurontin 300 mg Capsule] 300 mg PO Q12 #60 capsule Methylprednisolone [Medrol Dosepack (4 mg/Tab) 21 Tab/Dosepak] 4 mg PO ASDIR PRN #21 tab.ds.pk PRN Reason: Referrals: MADELINE DOLL PA-C [Primary Care Provider] - Follow up as needed Print Language: Panamanian
[2018-04-11] MEDS ORDERED: BACLOFEN 10 MG TABLET PO ONE (21:50)
[2018-04-11] MEDS ORDERED: KETOROLAC TROMETHAMINE INJ/PF 30 MG/1 ML SDV IV ONE (21:50)
[2018-04-11 23:58] VITALS: BP 142/89
== END 2018-04-12 00:11 | disposition home or self-care (01) ==
LOC: ER 20:11
DX: G89.29 Other chronic pain (principal); M54.42 Lumbago with sciatica, left side
CPT/HCPCS: 99283; 96374; J1885